=== PATIENT | female | born 1960 | race Caucasian/White ===

== ENCOUNTER 2018-12-16 14:16 | Outpatient (CLI) | payer BC ==
[~2018-12-16] VITALS: Ht 172.7 cm; Wt 80.7 kg
[~2018-12-16 14:16] MED LIST: AC500T; ALPR.25T PO; FAMO20TA5; HYOS0.3710 PO
[2018-12-16] MEDS ORDERED: ATOR40TA70 PO (15:16)
[2018-12-16] MEDS ORDERED: LEVO75TA6 PO (15:16)
== END 2018-12-16 15:21 | disposition home or self-care (01) ==
LOC: PREOP 14:16
PROVIDERS: ATTEND Urology
DX: Z01.818 Encounter for other preprocedural examination (principal)

== ENCOUNTER 2018-12-21 06:20 | Day surgery (SDC) | payer SELFPAY ==
[~2018-12-21] VITALS: Ht 170.2 cm; Wt 80.7 kg
[~2018-12-21 06:20] MED LIST changes: +ATOR40TA70 PO; +LEVO75TA6 PO
--- OUTSIDE RECORDS SUMMARY | 2018-12-21 06:24 | XMS REPORT | Continuity of Care Document ---
Author Organization Unknown Address Unknown Allergies There is no data. Medications There is no data. Problems There is no data. Procedures There is no data. Results Test Result Range TSH - 11/22/18 11:12 TSH >150.00 mIU/L 0.40-4.50 SUREPATH PAP AND HPV mRNA E6/E7 - 11/30/18 11:12 CLINICAL INFORMATION: NRG LMP: MENOPAUSAL NRG PREV. PAP: UNKNOWN NRG PREV. BX: UNK NRG SOURCE: Cervix NRG STATEMENT OF ADEQUACY: NRG INTERPRETATION/RESULT: NRG NURSING ADMIN: NRG HPV mRNA E6/E7, SUREPATH VIAL Not Detected NOT DETECTED COMMENT NRG CULTURE, URINE - 11/30/18 11:12 CULTURE, URINE, ROUTINE SEE NOTE NRG Encounters ACCT No. Visit Date/Time Discharge Status Pt. Type Provider Facility Loc./Unit Complaint [id number] 12/06/2018 11:40:00 12/06/2018 23:59:59 [facility] Outpatient [facility] [id number] 11/30/2018 09:40:00 Document Registration [id number] 11/22/2018 09:20:00 Document Registration
[2018-12-21 06:45] VITALS: BP 101/90
[2018-12-21] MEDS ORDERED: MIDAZOLAM 2 MG/2 ML (VERSED) VIAL IV ONE (07:00)
[2018-12-21] MEDS ORDERED: FAMOTIDINE 20MG/2ML IV (PEPCID) IV ONE (07:00)
--- NOTE | 2018-12-21 07:02 | Progress Note-Pre Operative ---
Pre-Operative Progress Note H&P Reviewed The H&P was reviewed, patient examined and no changes noted. Date Seen by Provider: Dec 21, 2018 Time Seen by Provider: 07:01 Date H&P Reviewed: Dec 21, 2018 Time H&P Reviewed: 07:01 Pre-Operative Diagnosis: URETHRAL OLIVE VIDALES MD Dec 21, 2018 07:02
--- NOTE | 2018-12-21 07:09 | Progress Note-Post Operative ---
Post-Operative Progess Note Surgeon (s)/News Operations Manager (s) Surgeon OLIVE MILLER MD News Operations Manager: NONE Pre-Operative Diagnosis URETHRAL LESION Post-Operative Diagnosis URETHRAL PROLAPSE Procedure & Operative Findings Date of Procedure 12/21/18 Procedure Performed/Findings EXCISION OF URETHRAL PROLAPSE Anesthesia Type GENERAL Estimated Blood Loss Estimated blood loss (mL): NEGLIGIBLE Specimens/Packing Specimens Removed URETHRAL PROLAPSE Packing: NONE OLIVE MILLER MD Dec 21, 2018 07:09
[2018-12-21] MEDS: LACTATED RINGERS 1,000 ML IV PRN ×2 (07:10→08:50)
[2018-12-21] MEDS ORDERED: CATHETER FLUSH 10 ML SYR IV PRN (07:15)
[2018-12-21] MEDS ORDERED: cefTRIAXone FOR IV USE 1,000 MG in WATER (STERILE) FOR INJECTION 10 ML IV ONE (07:15)
[2018-12-21] MEDS ORDERED: LIDOCAINE PF 2% 5 ML (XYLOCAINE) VIAL ONE (07:57)
[2018-12-21] MEDS ORDERED: proPOfol 200 MG/20 ML (DIPRIVAN) VIAL IV ONE (07:57)
[2018-12-21] MEDS ORDERED: DEXAMETHASONE 10 MG/ML (DECADRON) 1 ML VIAL ONE (07:57)
[2018-12-21] MEDS ORDERED: ONDANSETRON 4 MG/2 ML (SDV) Z0FRAN ONE (07:57)
[2018-12-21] MEDS ORDERED: SEVOFLURANE (ULTANE) 15 ML INHAL SOLN ONE (07:58)
[2018-12-21] MEDS ORDERED: fentaNYL INJECTION 100 MCG/2 ML AMP ONE (07:58)
--- NOTE | 2018-12-21 09:27 | Discharge Inst-Urology ---
Discharge Inst-Urology Discharge Medications New, Converted, or Re-newed RX: RX on Chart Patient Instructions/Follow Up Plan Discharge with ferguson and leg bag day time and large bag night time with instructions. Please make appointment to been seen in office in 2 weeks. Tomorrow may start showers, no bath Keep bowels soft and moving Patient to come to office in one week to DC Ferguson Increase oral fluids for 48 hours and then as needed. Diet and Activity as tolerated. If questions or concerns contact your physician Or seek help at emergency department. OLIVE MILLER MD Dec 21, 2018 09:27
[2018-12-21] MEDS ORDERED: ONDANSETRON 4 MG/2 ML (SDV) Z0FRAN IVP PRN (09:30)
[2018-12-21] MEDS ORDERED: morphine INJ 10 MG/ML 1ML (SYR OR VIAL) IVP ONE (09:30)
[2018-12-21 09:45] VITALS: BP 109/78
[2018-12-21 09:50] VITALS: BP 109/78
--- NOTE | 2018-12-21 10:06 | Anesthesia-General Post-Op ---
General Patient Condition Mental Status/LOC: Same as Preop Cardiovascular: Satisfactory Nausea/Vomiting: Absent Respiratory: Satisfactory Pain: Controlled Complications: Absent Post Op Complications Complications None Follow Up Care/Instructions Patient Instructions None needed. Anesthesia/Patient Condition Patient Condition Patient is doing well, C/O a slight headache which she states she had on arrival this morning, stable vital signs, no apparent adverse anesthesia problems. SUZAN KOVACS DO Dec 21, 2018 10:06
[2018-12-21 10:15] VITALS: BP 122/80
[2018-12-21] MEDS ORDERED: NITR-65 PO (10:25)
[2018-12-21] MEDS ORDERED: PHEN-640 PO (10:25)
[2018-12-21] MEDS ORDERED: NEOM28.34 TP (10:25)
[2018-12-21 10:45] VITALS: BP 124/84
--- NOTE | 2018-12-21 13:47 | OPERATIVE REPORT ---
DATE OF SERVICE: 12/21/2018 PREOPERATIVE DIAGNOSIS: Urethral lesion. POSTOPERATIVE DIAGNOSIS: Urethral prolapse. OPERATION PERFORMED: Excision of urethral prolapse. SURGEON: Holden Miller MD ANESTHESIA: General. COMPLICATIONS: None. DESCRIPTION OF PROCEDURE: Under satisfactory general anesthesia, the patient in lithotomy position, genitalia were prepped and draped in the usual sterile fashion. Observed a urethral prolapse, all circumferentially around the urethra. I performed cystoscopy to confirm the integrity of the bladder and ureters with clear efflux from both sides. I removed the cystoscope, inserted a Pozo catheter. Then, I excised the urethral prolapse around the meatus healthy tissue. I went ahead and approximated the mucosa with several interrupted 4-0 chromic catgut. Hemostasis was very adequate. I left the Pozo catheter indwelling. Estimated blood loss was negligible, none of which was replaced. The patient tolerated the procedure and anesthesia well and was sent to recovery room in stable condition. Job ID: [id number] DocumentID: [id number] Dictated Date: 12/21/2018 09:23:19 Financial Data Analyst Date: 12/21/2018 13:46:33 Dictated By: HOLDEN MILLER MD
== END 2018-12-21 11:25 | disposition home or self-care (01) ==
LOC: SDC 06:20
PROVIDERS: ATTEND Urology
DX: N36.8 Other specified disorders of urethra (principal); F41.0 Panic disorder [episodic paroxysmal anxiety]; K58.9 Irritable bowel syndrome, unspecified; K21.9 Gastro-esophageal reflux disease without esophagitis; Z79.899 Other long term (current) drug therapy
CPT/HCPCS: 87081

== ENCOUNTER 2019-04-25 05:39 | Outpatient (CLI) | payer OTHER ==
[~2019-04-25] VITALS: Ht 170.2 cm; Wt 72.6 kg
[~2019-04-25 05:39] MED LIST changes: +NEOM28.34 TP; +NITR-65 PO; +PHEN-640 PO
== END 2019-04-25 14:46 ==
LOC: PREOP 05:39
PROVIDERS: ATTEND Obstetrics & Gynecology
DX: Z01.818 Encounter for other preprocedural examination (principal); Z97.5 Presence of (intrauterine) contraceptive device

== ENCOUNTER 2019-04-28 08:37 | Day surgery (SDC) | payer OTHER ==
[2019-04-28] VITALS (11 sets, daily range): BP systolic 10–142; BP diastolic 68–93
[~2019-04-28] VITALS: Ht 170.2 cm; Wt 72.6 kg
[2019-04-28] MEDS ORDERED: LACTATED RINGERS 1,000 ML IV PRN (09:12)
[2019-04-28] MEDS ORDERED: ceFAZolin INJECTION 1,000 MG in WATER (STERILE) FOR INJECTION 10 ML IV ONE (09:15)
[2019-04-28] MEDS ORDERED: ceFAZolin INJECTION 1,000 MG ONE (09:25)
[2019-04-28 09:27] LABS: BASOPHILS % (AUTO) 1 % (0-10); EOSINOPHILS # (AUTO) 0.2 10^3/uL (0.0-0.3); EOSINOPHILS % (AUTO) 5 % (0-10); HEMATOCRIT 39 % (35-52); HEMOGLOBIN 12.7 G/DL (11.5-16.0); LYMPHOCYTES # (AUTO) 1.1 X 10^3 (1.0-4.0); LYMPHOCYTES % (AUTO) 26 % (12-44); MEAN CORPUSCULAR HEMOGLOBIN 27 PG (25-34); MEAN CORPUSCULAR HGB CONC 33 G/DL (32-36); MEAN CORPUSCULAR VOLUME 84 FL (80-99); MEAN PLATELET VOLUME 9.9 FL (7.4-10.4); MONOCYTES # (AUTO) 0.5 X 10^3 (0.0-1.0); MONOCYTES % (AUTO) 11 % (0-12); NEUTROPHILS # (AUTO) 2.4 X 10^3 (1.8-7.8); NEUTROPHILS % (AUTO) 57 % (42-75); PLATELET COUNT 276 10^3/uL (130-400); RED CELL DISTRIBUTION WIDTH 15.7 % (10.0-14.5); WHITE BLOOD COUNT 4.2 10^3/uL (4.3-11.0)
[2019-04-28] MEDS ORDERED: fentaNYL INJECTION 100 MCG/2 ML AMP ONE (09:43)
[2019-04-28] MEDS ORDERED: proPOfol 200 MG/20 ML (DIPRIVAN) VIAL IV ONE (09:43)
[2019-04-28] MEDS ORDERED: MIDAZOLAM 2 MG/2 ML (VERSED) VIAL ONE (09:43)
[2019-04-28] MEDS ORDERED: LIDOCAINE PF 2% 5 ML (XYLOCAINE) VIAL ONE (09:43)
[2019-04-28] MEDS ORDERED: morphine INJ 10 MG/ML 1ML (SYR OR VIAL) IVP ONE (10:00)
[2019-04-28] MEDS ORDERED: fentaNYL INJECTION 100 MCG/2 ML AMP IVP ONE (10:00)
--- NOTE | 2019-04-28 10:03 | Progress Note-Pre Operative ---
Pre-Operative Progress Note H&P Reviewed The H&P was reviewed, patient examined and no changes noted. Date Seen by Provider: Apr 28, 2019 Time Seen by Provider: 10:00 Date H&P Reviewed: Apr 28, 2019 Time H&P Reviewed: 09:30 Pre-Operative Diagnosis: Retained IUD BRIDGET COLMENARES DO Apr 28, 2019 10:03
--- NOTE | 2019-04-28 10:04 | Discharge Inst-Women's Service ---
Discharge Inst-Women's Serv Depart Medication/Instructions New, Converted or Re-Newed RX: RX on Chart Problems Reviewed?: Yes Consults/Follow Up Additional Follow Up: Yes Orders/Referrals Dr. Colmenares in 7-10 days. Activity Activity: Activity as Tolerated Driving Instructions: You May Drive (not today) Diet Discharge Diet: No Restrictions Symptoms to Report to : Bleeding Excessive, Pain Increased, Fever Over 101 Degrees F, Vaginal Bleeding Increase, Questions/Concerns For Any Problems or Questions: Contact Your Physician BRIDGET COLMENARES DO Apr 28, 2019 10:04
[2019-04-28] MEDS ORDERED: D5 LR IV SOLUTION 1,000 ML IV SCH (10:06)
[2019-04-28] MEDS ORDERED: ONDANSETRON 4 MG/2 ML (SDV) Z0FRAN IVP PRN (10:15)
[2019-04-28] MEDS ORDERED: BUPIVACAINE 0.25% 30 ML (SENSORCAINE) VIAL ONE (10:18)
[2019-04-28] MEDS ORDERED: DEXAMETHASONE 10 MG/ML (DECADRON) 1 ML VIAL ONE (10:26)
[2019-04-28] MEDS ORDERED: ONDANSETRON 4 MG/2 ML (SDV) Z0FRAN ONE (10:26)
[2019-04-28] MEDS ORDERED: SEVOFLURANE (ULTANE) 15 ML INHAL SOLN ONE (10:39)
--- NOTE | 2019-04-28 12:21 | Anesthesia-General Post-Op ---
General Patient Condition Mental Status/LOC: Same as Preop Cardiovascular: Satisfactory Nausea/Vomiting: Absent Respiratory: Satisfactory Pain: Controlled Complications: Absent Post Op Complications Complications None Follow Up Care/Instructions Patient Instructions None needed. Anesthesia/Patient Condition Patient Condition Patient is doing well, no complaints, stable vital signs, no apparent adverse anesthesia problems. No complications reported per nursing. ESPERANZA DE OLIVEIRA CRNA Apr 28, 2019 12:21
--- NOTE | 2019-04-28 15:30 | OPERATIVE REPORT ---
DATE OF SERVICE: PREOPERATIVE DIAGNOSIS: A 58-year-old female with retained IUD greater than 30 years. POSTOPERATIVE DIAGNOSIS: A 58-year-old female with retained IUD greater than 30 years. PROCEDURE: Removal of retained IUD. SURGEON: Bridget Colmenares DO ANESTHESIA: General endotracheal. ESTIMATED BLOOD LOSS: Minimal. URINE OUTPUT: 20 mL drained at the end of the procedure. FLUIDS: 800 mL lactated Ringer's solution. FINDINGS: Lippes loop IUD, grossly normal appearing cervix and external female genitalia. SPECIMEN SENT: None. INDICATIONS FOR PROCEDURE: This 58-year-old female is the patient who came to my office with retained IUD that was requesting removal. Unsuccessful attempts were made in the office with her primary care provider. I discussed with the patient, attempted again in the office versus doing this under anesthesia, which may require hysteroscopy in order to visualize the IUD and remove it. Risks of procedure were discussed with the patient in detail and after all of her questions were answered, consent was obtained in the preoperative area and the patient was taken to the operating room. OPERATIVE REPORT IN DETAIL: Once in the operating room, anesthesia was found to be adequate, placed in dorsal lithotomy position, prepped and draped in normal sterile fashion. A timeout was performed. A weighted speculum was inserted in the patient's vagina. Right angle retractor was used to visualize the cervix, which was grasped at 12 o'clock position using a long Allis clamp. I am able to visualize the IUD strings. I gently sound the uterine cavity, depth was found to be 6 cm. I attempted to grasp the IUD with the uterine sound and unable to do so, grasping the strings and pulling them. There is significant amount of resistance. Therefore, I go inside of the cervix after dilating the cervix using Savanna dilators. I go inside of the cervix and I am able to grasp with a long curved Lynn, the IUD itself and removed it without difficulty. There is little to minimal bleeding noted after removal. A paracervical block is performed at 3 and 9 o'clock position using plain 0.25% Marcaine with 5 mL are injected at 3 and 9. Care was taken to aspirate before injecting. This was done for postoperative pain management and helping with cramping postoperatively after which there was no active bleeding noted from the cervix and the patient tolerated the procedure well and sent to recovery area in stable condition. Lap and sponge counts were correct at the end of the procedure. Instrument counts correct as well. Job ID: [id number] DocumentID: [id number] Dictated Date: 04/28/2019 11:02:07 Contractor [employer] Date: 04/28/2019 15:30:05 Dictated By: BRIDGET COLMENARES DO
== END 2019-04-28 12:45 | disposition home or self-care (01) ==
LOC: SDC 08:37
PROVIDERS: ATTEND Obstetrics & Gynecology
DX: Z30.432 Encounter for removal of intrauterine contraceptive device (principal); T83.89XA Other specified complication of genitourinary prosthetic devices, implants and grafts, initial encounter; E07.9 Disorder of thyroid, unspecified; E78.5 Hyperlipidemia, unspecified; G89.29 Other chronic pain; M54.9 Dorsalgia, unspecified; G62.9 Polyneuropathy, unspecified; J30.9 Allergic rhinitis, unspecified; Z88.8 Allergy status to other drugs, medicaments and biological substances; Z79.82 Long term (current) use of aspirin; Z88.6 Allergy status to analgesic agent; Z87.891 Personal history of nicotine dependence; Z79.899 Other long term (current) drug therapy; Z83.3 Family history of diabetes mellitus; Z82.49 Family history of ischemic heart disease and other diseases of the circulatory system
CPT/HCPCS: 36415; 85025; 86850; 86900; 86901; 87081; 94664

== ENCOUNTER 2020-12-14 14:38 | Inpatient (IN) | payer OTHER ==
[~2020-12-14] VITALS: Ht 170.2 cm; Wt 95.5 kg
--- NOTE | 2020-12-14 15:01 | ED Chest Pain ---
General Stated Complaint: CP Source: patient Exam Limitations: no limitations History of Present Illness Date Seen by Provider: Dec 14, 2020 Time Seen by Provider: 14:59 Initial Comments To ER with reports of chest pain. This began this morning at 5 AM when she awakened. She then went back to sleep and reawakened at about 8 AM and still had the chest pain. It persists now, about 4 out of 10. She had some mild nausea. She takes Pepcid a few times a week for heartburn. She also has some pain between her shoulder blades which she believes is arthritis. She does have a history of hyperlipidemia. She smokes marijuana daily but does not smoke cigarettes. Her father at the age of mid 50s from heart attack. Timing/Duration: 4-6 hours Severity/Quality: moderate Location: central Radiation: no radiation Activities at Onset: none ASA po DORR OPERATOR: No NTG SL DORR OPERATOR: No Associated Symptoms: denies symptoms Allergies and Home Medications Allergies Coded Allergies: NSAIDS (Non-Steroidal Anti-Inflamma (Unverified Allergy, Unknown, 04/25/19) aspirin (Verified Allergy, Unknown, 04/25/19) diphenhydramine (Verified Allergy, Unknown, 04/25/19) erythromycin base (Verified Allergy, Unknown, 04/25/19) ibuprofen (Verified Allergy, Unknown, Hives, 04/28/19) loratadine (Verified Allergy, Unknown, 04/25/19) prednisone (Verified Allergy, Unknown, 04/25/19) rofecoxib (Verified Allergy, Unknown, 04/25/19) codeine (Verified Adverse Reaction, Mild, Nausea, 04/25/19) Home Medications Levothyroxine Sodium 75 Mcg Tablet, 75 MCG PO DAILY, (Reported) Patient Home Medication List Home Medication List Reviewed: Yes Review of Systems Review of Systems Constitutional: see HPI EENTM: No Symptoms Reported Respiratory: No Symptoms Reported Cardiovascular: See HPI, Chest Pain Gastrointestinal: See HPI Genitourinary: No Symptoms Reported Musculoskeletal: no symptoms reported Skin: no symptoms reported Psychiatric/Neurological: No Symptoms Reported Endocrine: No Symptoms Reported Hematologic/Lymphatic: No Symptoms Reported Past Aqcxfdv-Mblkop-Xnxskf Hx Patient Social History Former Smoker, Quit: Dec 16, 2004 2nd Hand Smoke Exposure: Yes Recent Hopitalizations: No Immunizations Up To Date Tetanus Booster (TDap): Unknown PED Vaccines UTD: No Seasonal Allergies Seasonal Allergies: Yes Past Medical History Surgeries: Yes (wisdom teeth, spider bite I&D, URETHRA PROLAPSE) Respiratory: No Cardiac: No Neurological: No Sexually Transmitted Disease: No HIV/AIDS: No Genitourinary: Yes (urethral lesion) Gastrointestinal: Yes Irritable Bowel Musculoskeletal: Yes Arthritis, Chronic Back Pain Endocrine: Yes Hypothyroidsim HEENT: No Cancer: No Psychosocial: Yes Anxiety Integumentary: No Blood Disorders: No Adverse Reaction/Blood Tranf: No (N/A) Physical Exam Vital Signs Capillary Refill : Height, Weight, BMI Height: 5'7.00" Weight: 160lbs. 0.0oz. 72.108173it; 25.1 BMI Method:Stated General Appearance: No Apparent Distress, WD/WN Neck: Full Range of Motion, Normal Inspection Respiratory: No Accessory Muscle Use, No Respiratory Distress Cardiovascular: Regular Rate, Rhythm, Normal Peripheral Pulses Gastrointestinal: Normal Bowel Sounds, Non Tender, Soft Extremity: Normal Capillary Refill, Normal Inspection Neurologic/Psychiatric: Alert, Oriented x3 Skin: Normal Color, Warm/Dry Progress/Results/Core Measures Results/Orders Lab Results Laboratory Tests Test 12/14/20 14:55 Range/Units White Blood Count 4.8 4.3-11.0 10^3/uL Red Blood Count 4.69 3.80-5.11 10^6/uL Hemoglobin 13.9 11.5-16.0 g/dL Hematocrit 42 35-52 % Mean Corpuscular Volume 90 80-99 fL Mean Corpuscular Hemoglobin 30 25-34 pg Mean Corpuscular Hemoglobin Concent 33 32-36 g/dL Red Cell Distribution Width 13.2 10.0-14.5 % Platelet Count 263 130-400 10^3/uL Mean Platelet Volume 9.8 9.0-12.2 fL Immature Granulocyte % (Auto) 0 % Neutrophils (%) (Auto) 64 42-75 % Lymphocytes (%) (Auto) 27 12-44 % Monocytes (%) (Auto) 7 0-12 % Eosinophils (%) (Auto) 2 0-10 % Basophils (%) (Auto) 1 0-10 % Neutrophils # (Auto) 3.0 1.8-7.8 X 10^3 Lymphocytes # (Auto) 1.3 1.0-4.0 X 10^3 Monocytes # (Auto) 0.3 0.0-1.0 X 10^3 Eosinophils # (Auto) 0.1 0.0-0.3 10^3/uL Basophils # (Auto) 0.0 0.0-0.1 10^3/uL Immature Granulocyte # (Auto) 0.0 0.0-0.1 10^3/uL Prothrombin Time 12.7 12.2-14.7 SEC INR Comment 0.9 0.8-1.4 Activated Partial Thromboplast Time 30 24-35 SEC D-Dimer 0.52 H 0.00-0.49 UG/ML Sodium Level 139 135-145 MMOL/L Potassium Level 3.9 3.6-5.0 MMOL/L Chloride Level 110 H 98-107 MMOL/L Carbon Dioxide Level 18 L 21-32 MMOL/L Anion Gap 11 5-14 MMOL/L Blood Urea Nitrogen 11 7-18 MG/DL Creatinine 0.82 0.60-1.30 MG/DL Estimat Glomerular Filtration Rate > 60 BUN/Creatinine Ratio 13 Glucose Level 109 H 70-105 MG/DL Calcium Level 8.9 8.5-10.1 MG/DL Corrected Calcium 9.0 8.5-10.1 MG/DL Magnesium Level 1.8 1.6-2.4 MG/DL Total Bilirubin 0.6 0.1-1.0 MG/DL Aspartate Amino Transf (AST/SGOT) 22 5-34 U/L Alanine Aminotransferase (ALT/SGPT) 18 0-55 U/L Alkaline Phosphatase 78 40-136 U/L Myoglobin 393.1 H 10.0-92.0 NG/ML Troponin I 0.523 *H <0.028 NG/ML B-Type Natriuretic Peptide 53.8 <100.0 PG/ML Total Protein 6.6 6.4-8.2 GM/DL Albumin 3.9 3.2-4.5 GM/DL Lipase 14 8-78 U/L My Orders Orders - SARAH LÓPEZ APRN Cbc With Automated Diff (12/14/20 14:48) Magnesium (12/14/20 14:48) Chest 1 View, Ap/Pa Only (12/14/20 14:48) Ekg Tracing (12/14/20 14:48) Comprehensive Metabolic Panel (12/14/20 14:48) Myoglobin Serum (12/14/20 14:48) Protime With Inr (12/14/20 14:48) Partial Thromboplastin Time (12/14/20 14:48) O2 (12/14/20 14:48) Monitor-Rhythm Ecg Trace Only (12/14/20 14:48) Lipid Panel (12/15/20 06:00) Ed Iv/Invasive Line Start (12/14/20 14:48) Lipase (12/14/20 14:48) BNP (12/14/20 14:48) Fibrin Degradation Products (12/14/20 14:48) Troponin I (12/14/20 14:48) Aspirin Chewable Tablet (Baby Aspirin Ch (12/14/20 15:15) Pantoprazole Injection (Protonix Injecti (12/14/20 15:15) Antacid Suspension (Mylanta Suspension (12/14/20 15:15) Lidocaine 2% Viscous 15 Ml (Xylocaine Vi (12/14/20 15:15) Nitroglycerin 0.4 Mg Btl 25's (Nitrostat (12/14/20 15:45) Fentanyl Inj (Sublimaze Injection) (12/14/20 15:45) Enoxaparin Injection (Lovenox Injection) (12/14/20 16:00) Ticagrelor Tablet (Brilinta Tablet) (12/14/20 16:00) Ondansetron Injection (Zofran Injectio (12/14/20 16:00) Medications Given in ED Current Medications Medications Dose Ordered Sig/Ofe Route Start Time Stop Time Status Last Admin Dose Admin Al Hydrox/Mg Hydrox/Simethicone 30 ml ONCE ONCE PO 12/14/20 15:15 12/14/20 15:16 DC 12/14/20 15:25 30 ML Aspirin 324 mg ONCE ONCE PO 12/14/20 15:15 12/14/20 15:16 DC 12/14/20 15:25 324 MG Fentanyl Citrate 50 mcg ONCE ONCE IVP 12/14/20 15:45 12/14/20 15:46 DC 12/14/20 15:47 50 MCG Lidocaine HCl 10 ml ONCE ONCE PO 12/14/20 15:15 12/14/20 15:16 DC 12/14/20 15:25 10 ML Nitroglycerin 1 TAB Q 5 MIN X 3 NEEDED PRN SL 12/14/20 15:45 12/14/20 15:47 0.4 MG Pantoprazole 40 mg ONCE ONCE IV 12/14/20 15:15 12/14/20 15:16 DC 12/14/20 15:24 40 MG Departure Communication (Admissions) Spoke with Dr. Anderson, will admit, 2D echocardiogram in the morning, Brilinta 180 mg now in the 90 mg twice daily as well as Lovenox now. Possible cardiac catheterization in the morning. Spoke with Dr. Giron [facility] he agrees to admit. Impression Primary Impression: Chest pain Disposition: HOME, SELF-CARE Condition: Stable Admissions Decision to Admit Reason: Admit from ER (General) Decision to Admit/Date: Dec 14, 2020 Time/Decision to Admit Time: 15:43 Departure-Patient Inst. Referrals: [facility] (PCP) Primary Care Physician MIMA RODRIGUEZ (Family) Primary Care Physician Patient Instructions: Chest Pain (DC) SARAH LÓPEZ 3D ANIMATOR Dec 14, 2020 15:01
[2020-12-14 15:03] LABS: BASOPHILS % (AUTO) 1 % (0-10); EOSINOPHILS # (AUTO) 0.1 10^3/uL (0.0-0.3); EOSINOPHILS % (AUTO) 2 % (0-10); HEMATOCRIT 42 % (35-52); HEMOGLOBIN 13.9 g/dL (11.5-16.0); LYMPHOCYTES # (AUTO) 1.3 X 10^3 (1.0-4.0); LYMPHOCYTES % (AUTO) 27 % (12-44); MEAN CORPUSCULAR HEMOGLOBIN 30 pg (25-34); MEAN CORPUSCULAR HGB CONC 33 g/dL (32-36); MEAN CORPUSCULAR VOLUME 90 fL (80-99); MEAN PLATELET VOLUME 9.8 fL (9.0-12.2); MONOCYTES # (AUTO) 0.3 X 10^3 (0.0-1.0); MONOCYTES % (AUTO) 7 % (0-12); NEUTROPHILS % (AUTO) 64 % (42-75); PLATELET COUNT 263 10^3/uL (130-400); WHITE BLOOD COUNT 4.8 10^3/uL (4.3-11.0)
[2020-12-14] MEDS ORDERED: ASPIRIN 81 MG CHEW (CHILDREN'S ASA) PO ONE (15:15)
[2020-12-14] MEDS ORDERED: PANTOPRAZOLE 40 MG (PROTONIX) VIAL IV ONE (15:15)
[2020-12-14] MEDS ORDERED: LIDOCAINE 2% VISCOUS 15 ML UDC PO ONE (15:15)
[2020-12-14] MEDS ORDERED: ANTACID SUSP 30 ML UDC (MYLANTA) PO ONE (15:15)
[2020-12-14 15:16] LABS: ALBUMIN 3.9 GM/DL (3.2-4.5); CHLORIDE 110 MMOL/L (98-107); INR 0.9 (0.8-1.4); POTASSIUM 3.9 MMOL/L (3.6-5.0); PROTHROMBIN TIME PATIENT 12.7 SEC (12.2-14.7); SODIUM 139 MMOL/L (135-145)
[2020-12-14 15:17] LABS: CALCIUM 8.9 MG/DL (8.5-10.1)
[2020-12-14 15:18] LABS: GLUCOSE 109 MG/DL (70-105)
[2020-12-14 15:19] LABS: TOTAL PROTEIN 6.6 GM/DL (6.4-8.2)
[2020-12-14 15:20] LABS: BILIRUBIN,TOTAL 0.6 MG/DL (0.1-1.0); CARBON DIOXIDE 18 MMOL/L (21-32)
[2020-12-14 15:22] LABS: ALKALINE PHOSPHATASE 78 U/L (40-136); CREATININE SERUM 0.82 MG/DL (0.60-1.30); GFR ESTIMATED > 60
[2020-12-14 15:23] LABS: BUN/CREATININE RATIO 13
[2020-12-14 15:25] LABS: ALANINE AMINOTRANSFERASE 18 U/L (0-55); MAGNESIUM 1.8 MG/DL (1.6-2.4)
[2020-12-14 15:26] LABS: LIPASE 14 U/L (8-78)
[2020-12-14] MEDS ORDERED: NITROGLYCERIN 0.4 MG SL TABS BTL 25'S SL PRN (15:45)
[2020-12-14] MEDS ORDERED: fentaNYL INJ 100 MCG/2 ML AMP IVP ONE (15:45)
[2020-12-14] MEDS ORDERED: ENOXAPARIN 100 MG/1 ML (LOVENOX) SYR SC ONE (16:00)
[2020-12-14] MEDS ORDERED: ONDANSETRON 4 MG/2 ML (SDV) Z0FRAN IVP ONE (16:00)
[2020-12-14] MEDS ORDERED: TICAGRELOR 90 MG TABLET (BRILINTA) PO ONE (16:00)
[2020-12-14] MEDS ORDERED: NS IV 1000 ML 1,000 ML ONE (16:02)
--- NOTE | 2020-12-14 16:14 | Diagnostic Imaging Report ---
EXAMINATION: Chest 1 view. HISTORY: Chest pain. COMPARISON: None available. FINDINGS: Heart size and pulmonary vasculature are normal. Mild interstitial opacities within the lung bases. No pleural effusion or pneumothorax. The osseous structures are intact. IMPRESSION: 1. Mild interstitial opacities in the lung bases which could be atelectasis, edema, or atypical infection in the appropriate clinical setting. Dictated by: Dictated on workstation # [id number]
[2020-12-14] MEDS ORDERED: NS IV 1000 ML 1,000 ML IV SCH (16:30)
[2020-12-14] MEDS ORDERED: LORazepam 0.5 MG (ATIVAN) TABLET PO PRN (18:15)
[2020-12-14] MEDS ORDERED: LORazepam INJ 2 MG/ML (ATIVAN) VIAL IV PRN (18:15)
[2020-12-14] MEDS: fentaNYL INJ 100 MCG/2 ML AMP IV PRN (18:41)
[2020-12-14] MEDS: LACTATED RINGERS 1,000 ML IV SCH (18:41)
[2020-12-14 19:24] VITALS: BP 138/92
[2020-12-14 23:00] VITALS: BP 140/86
[2020-12-15] VITALS (15 sets, daily range): BP systolic 114–172; BP diastolic 68–101
[2020-12-15] MEDS: LACTATED RINGERS 1,000 ML IV SCH ×3 (02:55→18:28)
[2020-12-15] MEDS: fentaNYL INJ 100 MCG/2 ML AMP IV PRN ×3 (04:15→16:30)
[2020-12-15] MEDS: ONDANSETRON 4 MG/2 ML (SDV) Z0FRAN IV PRN ×2 (04:19→19:49)
[2020-12-15] MEDS ORDERED: TICAGRELOR 90 MG TABLET (BRILINTA) PO SCH (05:00)
[2020-12-15] MEDS: PANTOPRAZOLE 40 MG (PROTONIX) VIAL IV SCH (08:53)
[2020-12-15] MEDS ORDERED: ASPIRIN 81 MG CHEW (CHILDREN'S ASA) PO SCH (09:00)
--- NOTE | 2020-12-15 11:22 | History & Physical-Hospitalist ---
History of Present Illness HPI/Chief Complaint Patient reports waking up the morning of her admission with chest discomfort around 630 it apparently lasted for several hours was getting worse and associated with some nausea she denied diaphoresis. She had some subscapular back pain that is not unusual for her however when she wakes up. She denied any previous problems with chest discomfort like this denied dyspnea on exertion or change in energy level. While her ECG in the emergency room was normal troponin level was 0.5 so she was admitted with presumed non-ST segment elevation ME. She was started on Brilinta and aspirin and received 1 dose of nitroglycerin which reportedly resulted in hypotension without syncope but was symptomatic per the patient. Nitro is being held for this reason. Overnight she had more chest discomfort alleviated by fentanyl with repeat ECG this morning again revealing no ischemic change and underlying sinus rhythm. Dr. Anderson was consulted and notified about her chest discomfort per nursing staff. Currently this morning she appears to be in no acute distress rating some precordial discomfort at 2-3 much better than it had been around 4:30 ARisk factors are most notable for a family history for early coronary disease. Date Seen 12/15/20 Time Seen by a Provider: 06:30 Attending Physician Gurpreet Giron MD PCP Center[facility] Referring Physician Date of Admission Dec 14, 2020 at 16:31 Home Medications & Allergies Home Medications Reviewed patient Home Medication Reconciliation performed by pharmacy medication reconciliations exhaust emissions automotive technician and/or nursing. Patients Allergies have been reviewed. Allergies Allergies Coded Allergies ibuprofen (Verified Allergy, Mild, Nausea, 12/14/20) diphenhydramine (Verified Allergy, Unknown, 04/25/19) erythromycin base (Verified Allergy, Unknown, 04/25/19) loratadine (Verified Allergy, Unknown, 04/25/19) prednisone (Verified Allergy, Unknown, 04/25/19) rofecoxib (Verified Allergy, Unknown, 04/25/19) codeine (Verified Adverse Reaction, Mild, Nausea, 04/25/19) Patient Social History Tobacco Use?: No Smoking Status: Never a Smoker Substance use?: Yes Substance type: Marijuana Substance frequency: Daily Alcohol Use?: No Pt stated abuse/neglect: No Immunizations Up To Date Influenza Vaccine Up-to-Date: No; Not Current Current Status Do you have an Advance Directi: No Communicates: Verbally Primary Language: Kyrgyz Preferred Spoken Language: Kyrgyz Is interpretation needed?: No Review of Systems Constitutional: see HPI Physical Exam Physical Exam Vital Signs Vital Signs - First Documented 12/14/20 12/14/20 14:40 16:45 Temp 35.9 Pulse 56 Resp 20 B/P (MAP) 148/102 (117) Pulse Ox 97 O2 Delivery Room Air Capillary Refill : Less Than 3 Seconds Height, Weight, BMI Height: 5'7.00" Weight: 160lbs. 0.0oz. 72.585969gr; 32.96 BMI Method:Stated General Appearance: No Apparent Distress, WD/WN HEENT: PERRL/EOMI, TMs Normal, Normal ENT Inspection, Pharynx Normal, Moist Mucous Membranes Neck: Full Range of Motion, Normal Inspection, Non Tender Respiratory: Chest Non Tender, Lungs Clear, Normal Breath Sounds, No Accessory Muscle Use, No Respiratory Distress Cardiovascular: Regular Rate, Rhythm, No Edema, No Gallop, No JVD, No Murmur, Normal Peripheral Pulses Gastrointestinal: Normal Bowel Sounds, No Organomegaly, No Pulsatile Mass, Non Tender, Soft Extremity: Normal Inspection, Normal Range of Motion, Non Tender, No Calf Tenderness, No Pedal Edema Results Results/Procedures Labs Laboratory Tests 12/14/20 14:55 Patient resulted labs reviewed. Assessment/Plan Admission Diagnosis 1. Acute non-ST segment elevation ME likely cardiac cath per Dr. Anderson later today continue aspirin and Brilinta defer further cardiac management to . 2. History of hyperlipidemia aggravated by hypothyroidism. Patient reports itching reaction that occurred 30 minutes after each dose of atorvastatin in the past. Advised to discuss this with Dr. Anderson as a different statin for which my choice would be rosuvastatin moderate to high-dose considering the circumstances. 3. 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 Admission Status: Inpatient Order (span 2 midnights) Reason for Inpatient Admission: See admission diagnosis Clinical Quality Measures AMI/AHF: ASA po Prior to arrival: GURPREET Traore MD Dec 15, 2020 11:22
[2020-12-15] MEDS ORDERED: fentaNYL INJ 100 MCG/2 ML AMP ONE (12:34)
[2020-12-15] MEDS ORDERED: MIDAZOLAM 5 MG/5 ML (VERSED) VIAL ONE (12:34)
[2020-12-15] MEDS ORDERED: LIDOCAINE 1% INJ 20 ML 20 ML VIAL ONE (12:34)
[2020-12-15] MEDS ORDERED: HEParin (CATH LAB) 2,000 ML IV ONE (12:35)
[2020-12-15] MEDS ORDERED: HEParin 1000 UNIT/ML (10ML VIAL) FOR BOLUS ONE (13:40)
--- NOTE | 2020-12-15 14:21 | Consultation-Cardiology ---
HPI-Cardiology Cardiology Consultation: Date of Consultation 12/15/20 Date of Admission Attending Physician Gurpreet Giron MD Admitting Physician [facility] Consulting Physician Juan Jose ANDERSON MD HPI: Time Seen by a Provider: 12:00 Chief Complaint: Chest pain This is a 60-year-old lady with history of hypertension and hyperlipidemia. She has previous history of smoking but quit few years ago. She does smoke marijuana. She denies diabetes. Family history is positive for coronary artery disease. She presents with a prolonged episode of chest pain which resolved w ith medications given in the ER. Substernal. Moderate to severe intensity. No significant radiation. No associated cardiac symptoms. Review of Systems-Cardiology Review of Systems Constitutional: As described under HPI; No As described under HPI, No no symptoms reported, No chills, No fever, No lightheadedness Eyes: No As described under HPI, No no symptoms reported, No blindness, No blurred vision, No contact lenses, No drainage, No decreased acuity, No foreign body sensation, No pain, No vision change Ears/Nose/Throat: No As described under HPI, No no symptoms reported, No chronic hearing loss, No ear discharge, No ear pain, No nasal drainage, No ulcerations Respiratory: No no symptoms reported; As described under HPI; No As described under HPI, No cough, No orthopnea, No shortness of breath, No SOB with excertion Cardiovascular: No no symptoms reported; As described under HPI; No As described under HPI; chest pain; No edema, No irregular heart rate, No lightheadedness, No palpitations Gastrointestinal: No no symptoms reported, No As described under HPI, No abdomen distended, No abdominal pain, No blood streaked bowels, No constipation, No diarrhea, No nausea, No vomiting, No stool coloration changes Genitourinary: No As described under HPI, No burning, No dysuria, No discharge, No frequency, No flank pain, No hematuria, No urgency : Yes : No Skin: No rash, No skin related problems, No ulcerations Psychiatric/Neurological: No anxiety, No depression, No seizure, No focal weakness, No syncope Hematologic: No bleeding abnormalities RQF-[id number]-[id number] Hx Patient Social History Smoking Status: Never a Smoker 2nd Hand Smoke Exposure: Yes Have you traveled recently?: No Alcohol Use?: No Substance type: Marijuana Pt feels they are or have been: No Immunizations Up To Date Tetanus Booster (TDap): Unknown Past Medical History PMH As described under Assessment. Allergies and Home Medications Allergies Coded Allergies: ibuprofen (Verified Allergy, Mild, Nausea, 12/14/20) diphenhydramine (Verified Allergy, Unknown, 04/25/19) erythromycin base (Verified Allergy, Unknown, 04/25/19) loratadine (Verified Allergy, Unknown, 04/25/19) prednisone (Verified Allergy, Unknown, 04/25/19) rofecoxib (Verified Allergy, Unknown, 04/25/19) codeine (Verified Adverse Reaction, Mild, Nausea, 04/25/19) Home Medications Levothyroxine Sodium 75 Mcg Tablet, 75 MCG PO DAILY, (Reported) Last Action: Reviewed Patient Home Medication List Home Medication List Reviewed: Yes Physical Exam-Cardiology Physical Exam Vital Signs/I&O 12/15/20 12/15/20 12/15/20 12/15/20 02:56 04:00 07:00 07:23 Temp 36.2 36.0 36.0 Pulse 63 67 66 Resp 18 17 B/P (MAP) 158/97 (117) 139/88 (105) Pulse Ox 96 95 O2 Delivery Room Air Room Air 12/15/20 12/15/20 12/15/20 08:00 11:47 12:36 Temp 36.4 Pulse 61 64 Resp 18 B/P (MAP) 143/93 (110) Pulse Ox 94 O2 Delivery Room Air Room Air 12/15/20 00:00 Intake Total 1120 ml Balance 1120 ml Capillary Refill : Less Than 3 Seconds Constitutional: appears stated age, AAO x 3; No apparent distress; well- developed, well-nourished HEENT: PERRL; No discharge; hearing is well preserved, oral hygience is good; No ulceration, No xanthelasmas are seen Neck: No carotid bruit; carotid pulses are 2 + bilaterally Respiratory: chest is bilaterally symmetric, lungs clear to auscultation Cardiovascular: regular rate-rhythm, S1 and S2 Gastrointestinal: soft, audible bowel sounds; No spleenomegaly Rectal: deferred Extremities: No clubbing, No cyanosis; no lower extremity edema bilateral; No significant edema Neurologic/Psychiatric: no motor/sensory deficits, alert, normal mood/affect, oriented x 3, power is 5/5 both on sides Skin: normal color; No rash, No ulcerations Data Review Labs Laboratory Tests 12/14/20 14:55: White Blood Count 4.8, Red Blood Count 4.69, Hemoglobin 13.9, Hematocrit 42, Mean Corpuscular Volume 90, Mean Corpuscular Hemoglobin 30, Mean Corpuscular Hemoglobin Concent 33, Red Cell Distribution Width 13.2, Platelet Count 263, Mean Platelet Volume 9.8, Immature Granulocyte % (Auto) 0, Neutrophils (%) (Auto) 64, Lymphocytes (%) (Auto) 27, Monocytes (%) (Auto) 7, Eosinophils (%) (Auto) 2, Basophils (%) (Auto) 1, Neutrophils # (Auto) 3.0, Lymphocytes # (Auto) 1.3, Monocytes # (Auto) 0.3, Eosinophils # (Auto) 0.1, Basophils # (Auto) 0.0, Immature Granulocyte # (Auto) 0.0, Prothrombin Time 12.7, INR Comment 0.9, Activated Partial Thromboplast Time 30, D-Dimer 0.52H, Sodium Level 139, Potassium Level 3.9, Chloride Level 110H, Carbon Dioxide Level 18L, Anion Gap 11, Blood Urea Nitrogen 11, Creatinine 0.82, Estimat Glomerular Filtration Rate > 60, BUN/Creatinine Ratio 13, Glucose Level 109H, Calcium Level 8.9, Corrected Calcium 9.0, Magnesium Level 1.8, Total Bilirubin 0.6, Aspartate Amino Transf (AST/SGOT) 22, Alanine Aminotransferase (ALT/SGPT) 18, Alkaline Phosphatase 78, Myoglobin 393.1H, Troponin I 0.523*H, B-Type Natriuretic Peptide 53.8, Total Protein 6.6, Albumin 3.9, Lipase 14 12/15/20 01:42: Troponin I 4.510*H, Triglycerides Level 140, Cholesterol Level 222H, LDL Cholesterol Direct 131H, VLDL Cholesterol 28, HDL Cholesterol 69H ECG Impression ECG Initial ECG Rhythm: Normal Sinus Initial ECG Impression: Normal A/P-Cardiology Assessment/Admission Diagnosis Non-STEMI, Hypertension, Hyperlipidemia, Marijuana use Plan Non-STEMI, given aspirin and Brilinta in the ER. Lovenox given. I discussed at length with the patient and recommended coronary angiography and possible intervention. 1 to 2% risk of complication including was discussed and accepted by the patient.We will arrange for coronary angiography today. Hypertension: Will require beta-yaneth and ALICIA inhibitor. Hyperlipidemia: Patient had previously sensitivity reaction to atorvastatin. I will start Crestor. Marijuana abuse: I recommended quitting marijuana. Thank you for your consultation. Please call me if you have any questions. Stella Anderson MD, FACP, FACC, FSCAI, FHRS, CCDS Interventional Cardiology Cardiac Electrophysiology Vascular Medicine and Endovascular Interventions Clinical Quality Measures AMI/AHF: ASA po Prior to arrival: Juan Jose Weiss MD Dec 15, 2020 14:21
--- NOTE | 2020-12-15 14:25 | Cardiac Procedure Note-CS/ASA ---
Pre-Procedure Note Pre-Op Procedure Note H&P Reviewed The H&P was reviewed, patient examined and no changes noted. Date H&P Reviewed: Dec 15, 2020 Time H&P Reviewed: 13:00 Conscious Sedation Pre-Proced Time 13:00 ASA Score 3 For ASA 3 and 4: Consider anesthesia and medical clearance. Also, for patients with a history of failed moderate sedation consider anesthesia. Airway Lungs Heart ASA score ASA 1: a normal healthy patient ASA 2: a patient with a mild systemic disease (mid diabetes, controlled hypertension, obesity ASA 3: a patient with a severe systemic disease that limits activity (angina, COPD, prior Myocardial infarction) ASA 4: a patient with an incapacitating disease that is a constant threat to life (CHF, renal failure) ASA 5: a moribund patient not expected to survive 24 hrs. (ruptured aneurysm) ASA 6: a declared brain- patient whose organs are being harvested. For emergent operations, add the letter E after the classification Mallampati Classification Grade 1 Sedation Plan Analgesia, Amnesia, Plan communicated to team members, Discussed options with patient/fam, Discussed risks with patient/fam The patient is an appropriate candidate to undergo the planned procedure, sedation, and anesthesia. The patient immediately re-assessed prior to indication. Juan Jose STEWART MD Dec 15, 2020 14:25
[2020-12-15] MEDS ORDERED: PATIENT MAY USE OWN MEDS, ALL PO SCH (14:30)
--- NOTE | 2020-12-15 14:31 | Coronary Angiography & PCI ---
Coronary Angiography & PCI DATE OF PROCEDURE: 12/15/20 INDICATION: Non-STEMI PREOPERATIVE DIAGNOSIS: Non-STEMI POSTOPERATIVE DIAGNOSIS: Severe left circumflex artery stenosis treated with a drug-eluting stent. HISTORY: This is a 60-year-old lady with history of hypertension and hyperlipidemia who presents with non-STEMI. Informed consent with 1% risk of complications including discussed and accepted by the patient.Therefore, the patient was scheduled for coronary angiography. PROCEDURES PERFORMED: 1.Coronary angiography. 2.Left heart catheterization. 3.PCI to the Left circumflex artery with drug-eluting stent. COMPLICATIONS: None. SPECIMENS: None. ESTIMATED BLOOD LOSS: 10 mL ANESTHESIA: Conscious sedation ANTICOAGULATION: IV heparin CONTRAST: 149 mL. FLUOROSCOPY: 6.6 minutes. FLOUROSCOPY DOSE: 1270 mgy. PROCEDURE DETAILS: The patient is a 60 female and was brought to the pharmacy laboratory technician after informed consent was taken. All the risks and complications were explained in detail; this included the risk of bleeding, vascular damage, stroke, NM and even . The patient was draped and prepped in the usual sterile fashion. Access was gained in the right Femoral artery with a 5 [place] sheath. Coronary angiography and left heart catheterization was performed with the JR4 and JL4 catheter. FINDINGS: 1.Left main: Patent. 2.LAD: Mild mid disease. Stenosis severity 20%. 3.Left circumflex artery: Severe distal left circumflex artery/OM 2 stenosis with thrombosis. Subtotal lesion with YON I flow. 4.RCA: Chronic total occlusion of the proximal RCA with [id number] collaterals. 5.Left heart catheterization: LV pressure 77/14 mmHg. LVEDP 15 mmHg. Aortic pressure 88/65 mmHg. Normal LV function with no wall motion abnormalities. No gradient across the aortic valve. RECOMMENDATIONS: PCI to distal left circumflex artery/OM 2 is recommended. INTERVENTION DETAILS: We upgraded to a 6 [place] sheath. EBU 3.5 guide catheter. Whisper extra- support guidewire. IV heparin for anticoagulation. ACT over 200. The lesion was crossed with a whisper extra-support wire. We went in with a regular balloon 2.0 x 12 mm and performed predilatation. Post angiogram showed revascularization with YON-3 flow.Xience Fatemeh 2.25 x 18 mm stent was deployed at 9 best for 23 seconds. The stent balloon was pulled back a couple of millimeters and the mid and proximal section of the stent was postdilated with the same stent balloon at 16 best for 10 seconds. Excellent results with YON-3 flow and no complications. The patient tolerated the procedure well did not have any complications. Minx closure to the RFA CONCLUSIONS: 1. Acute subtotal occlusion of distal left circumflex artery/OM 2, treated with a drug-eluting stent. 2. Chronic total occlusion of the RCA being supplied from [id number] collaterals. Medical therapy for now. 3. Dual antiplatelet therapy for at least 1 year. Aggressive secondary prevention measures with beta-yaneth, lisinopril and Crestor. 4. Echocardiogram. 5. Marijuana use was strongly discouraged. 6. Patient to follow-up with either Dr. Mendenhall or Dr. Aly as an outpatient. Stella Anderson MD, FACP, FACC, [facility] Interventional Cardiology Juan Jose ANDERSON MD Dec 15, 2020 14:31
[2020-12-15] MEDS: NS IV 1000 ML 1,000 ML IV SCH (15:21)
[2020-12-15] MEDS: TICAGRELOR 90 MG TABLET (BRILINTA) PO SCH (21:00)
[2020-12-15] MEDS ORDERED: ROSUVASTATIN 20 MG (CRESTOR) TABLET PO SCH (21:00)
[2020-12-16] VITALS: BP 125/79
[2020-12-16] MEDS: NS IV 1000 ML 1,000 ML IV SCH ×2 (01:08→10:38)
[2020-12-16] MEDS ORDERED: ACETAMINOPHEN 500 MG TAB (TYLENOL) ONE (01:14)
[2020-12-16] MEDS: ONDANSETRON 4 MG/2 ML (SDV) Z0FRAN IV PRN (01:33)
[2020-12-16] MEDS ORDERED: ACETAMINOPHEN 500 MG TAB (TYLENOL) PO PRN (01:45)
[2020-12-16] MEDS: LACTATED RINGERS 1,000 ML IV SCH ×2 (02:46→10:26)
[2020-12-16 02:56] LABS: HEMOGLOBIN 12.4 g/dL (11.5-16.0); MEAN PLATELET VOLUME 10.6 fL (9.0-12.2); WHITE BLOOD COUNT 7.7 10^3/uL (4.3-11.0)
[2020-12-16 03:06] LABS: CHLORIDE 106 MMOL/L (98-107); POTASSIUM 3.6 MMOL/L (3.6-5.0); SODIUM 140 MMOL/L (135-145)
[2020-12-16 03:08] LABS: GLUCOSE 111 MG/DL (70-105)
[2020-12-16 03:10] LABS: CARBON DIOXIDE 22 MMOL/L (21-32)
[2020-12-16 03:12] LABS: CREATININE SERUM 0.92 MG/DL (0.60-1.30); GFR ESTIMATED > 60
[2020-12-16 03:13] LABS: BUN/CREATININE RATIO 8
[2020-12-16 04:00] VITALS: BP 113/70
[2020-12-16 07:25] VITALS: BP 114/70
[2020-12-16] MEDS ORDERED: lisINopril 40 MG (PRINIVIL) TABLET PO SCH (09:00)
[2020-12-16] MEDS ORDERED: ASPIRIN E.C. 81 MG (ECOTRIN) TAB PO SCH (09:00)
[2020-12-16] MEDS ORDERED: lisINopril 5 MG (PRINIVIL) TABLET PO SCH (09:00)
[2020-12-16] MEDS ORDERED: ROSU20TA32 PO (09:59)
[2020-12-16] MEDS ORDERED: MTP25TSR PO (09:59)
[2020-12-16] MEDS ORDERED: ASPI-1238 PO (09:59)
[2020-12-16] MEDS ORDERED: CLOP75TA69 PO (09:59)
--- NOTE | 2020-12-16 10:09 | Discharge Summary ---
Diagnosis/Chief Complaint Date of Admission Dec 14, 2020 at 16:31 Date of Discharge Discharge Date: Dec 16, 2020 Admission Diagnosis 1. Acute non-ST segment elevation OK likely cardiac cath per Dr. Anderson later today continue aspirin and Brilinta defer further cardiac management to Dr Isaac. 2. History of hyperlipidemia aggravated by hypothyroidism. Patient reports itching reaction that occurred 30 minutes after each dose of atorvastatin in the past. Advised to discuss this with Dr. Anderson as a different statin for which my choice would be rosuvastatin moderate to high-dose considering the circumstances. 3. 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 Primary Care Levon Aguayo Discharge Summary Discharge Physical Exam Allergies: Coded Allergies: ibuprofen (Verified Allergy, Mild, Nausea, 12/14/20) diphenhydramine (Verified Allergy, Unknown, 04/25/19) erythromycin base (Verified Allergy, Unknown, 04/25/19) loratadine (Verified Allergy, Unknown, 04/25/19) prednisone (Verified Allergy, Unknown, 04/25/19) rofecoxib (Verified Allergy, Unknown, 04/25/19) codeine (Verified Adverse Reaction, Mild, Nausea, 04/25/19) Vitals & I&Os Vital Signs Date Time Temp Pulse Resp B/P (MAP) Pulse Ox O2 Delivery O2 Flow Rate FiO2 12/16/20 07:25 36.6 65 14 114/70 (85) 95 Room Air General Appearance: No Apparent Distress, WD/WN Respiratory: Chest Non Tender, Lungs Clear, Normal Breath Sounds, No Accessory Muscle Use, No Respiratory Distress Cardiovascular: Regular Rate, Rhythm, No Edema, No Gallop, No JVD, No Murmur, Normal Peripheral Pulses Gastrointestinal: Normal Bowel Sounds, No Organomegaly, No Pulsatile Mass, Non Tender, Soft Extremity: Other (Bruising along right thigh with no evidence for hematoma formation no evidence for aneurysm dorsalis pedis pulse 2+) Hospital Course Was the Problem List Reviewed?: Yes Patient presented to emergency room with the onset of chest discomfort a ssociated with mild nausea. Her ECG was unremarkable but initial troponin was 0.5. She was admitted to monitor for non-ST segment elevation OK. Her second troponin level was a little over 4 with repeat ECG again revealing no evidence for ischemia. Echocardiography revealed normal LV systolic function according to Dr. Anderson with an estimated ejection fraction 55 to 65% pulmonary pressures were mildly elevated estimated at 40 to 45 mmHg with normal RV function. There is evidence for mild diastolic dysfunction with no evidence for any significant cardiac chamber dilatation. Cardiac catheterization was performed which revealed what appeared to be an old total right coronary artery occlusion with collateralized circulation and a high-grade blockage in the circumflex OM1 the likely culprit lesion. It was successfully stented with a drug-eluting stent with no further chest discomfort being reported by the patient. While she was started on Brilinta and aspirin upon arrival there is a good chance that this me dication will not be available to her through her [facility] pharmacy for this reason I have change it to clopidogrel 75 mg daily. If this is indeed not the case Dr. Anderson will change it back to Brilinta at his discretion. Patient reports she had been on atorvastatin in the past but every time she take the medication she would itch without rash for at least 30 minutes. Rosuvastatin 40 mg daily has been initiated. The importance of aspirin and either clopidogrel or Brilinta compliance discussed especially over the next 6 months was discussed with the patient. Advised follow-up lipid panel in several months cardiology and [facility] as per . Labs (last 24 hrs) Laboratory Tests 12/16/20 02:30: White Blood Count 7.7, Red Blood Count 4.10, Hemoglobin 12.4, Hematocrit 38, Mean Corpuscular Volume 93, Mean Corpuscular Hemoglobin 30, Mean Corpuscular Hemoglobin Concent 32, Red Cell Distribution Width 13.3, Platelet Count 213, Mean Platelet Volume 10.6, Sodium Level 140, Potassium Level 3.6, Chloride Level 106, Carbon Dioxide Level 22, Anion Gap 12, Blood Urea Nitrogen 7, Creatinine 0.92, Estimat Glomerular Filtration Rate > 60, BUN/Creatinine Ratio 8, Glucose Level 111H, Calcium Level 9.0, Troponin I 4.878*H Patient resulted labs reviewed. Pending Labs Laboratory Tests 12/16/20 02:30: White Blood Count 7.7, Red Blood Count 4.10, Hemoglobin 12.4, Hematocrit 38, Mean Corpuscular Volume 93, Mean Corpuscular Hemoglobin 30, Mean Corpuscular Hemoglobin Concent 32, Red Cell Distribution Width 13.3, Platelet Count 213, M irvin Platelet Volume 10.6, Sodium Level 140, Potassium Level 3.6, Chloride Level 106, Carbon Dioxide Level 22, Anion Gap 12, Blood Urea Nitrogen 7, Creatinine 0.92, Estimat Glomerular Filtration Rate > 60, BUN/Creatinine Ratio 8, Glucose Level 111, Calcium Level 9.0, Troponin I 4.878 Discussion & Recommendations Discharge Planning: >30 minutes discharge planning Discharge Home Medications: Active Scripts Active Plavix (Clopidogrel Bisulfate) 75 Mg Tablet 75 Mg PO DAILY 30 Days Aspirin EC (Aspirin) 81 Mg Tablet.dr 81 Mg PO DAILY 30 Days Metoprolol Succinate 25 Mg Tab.er.24h 25 Mg PO DAILY 30 Days Rosuvastatin Calcium 20 Mg Tablet 40 Mg PO HS 30 Days Reported Levothyroxine Sodium 75 Mcg Tablet 75 Mcg PO DAILY Instructions to patient/family Please see electronic discharge instructions given to patient. Clinical Quality Measures AMI/AHF: ASA po Prior to arrival: No Copy Copies To 2: [facility]LUIZ GONZALEZ MD Dec 16, 2020 10:09
[2020-12-16] MEDS: TICAGRELOR 90 MG TABLET (BRILINTA) PO SCH (10:19)
[2020-12-16] MEDS: PANTOPRAZOLE 40 MG (PROTONIX) VIAL IV SCH (10:26)
[2020-12-16 11:37] VITALS: BP 133/83
[2020-12-16] MEDS ORDERED: LISI-729 PO (13:28)
[2020-12-16] MEDS ORDERED: CLOPIDOGREL 300 MG (PLAVIX) TABLET PO NR (13:30)
--- NOTE | 2020-12-16 14:05 | Cardiology Progress Note ---
Cardiology SOAP Progress Note Subjective: No further chest pain. Objective: I&O/Vital Signs 12/16/20 12/16/20 12/16/20 12/16/20 04:00 07:00 07:25 09:30 Temp 36.4 36.6 Pulse 63 68 65 Resp 12 14 B/P (MAP) 113/70 (84) 114/70 (85) Pulse Ox 96 95 O2 Delivery Room Air Room Air Room Air 12/16/20 11:37 Temp 36.4 Pulse 68 Resp 15 B/P (MAP) 133/83 (100) Pulse Ox 96 O2 Delivery Room Air 12/16/20 00:00 Intake Total 250 ml Balance 250 ml Weight (Pounds): 160 Weight (Ounces): 0.0 Weight (Calculated Kilograms): [id number] Constitutional: appears stated age, AAO x 3; No apparent distress; well- developed, well-nourished Respiratory: chest is bilaterally symmetric, lungs clear to auscultation Cardiovascular: regular rate-rhythm, S1 and S2 Gastrointestional: soft, audible bowel sounds; No spleenomegaly Extremities: No clubbing, No cyanosis; no lower extremity edema bilateral; No significant edema Neurologic/Psychiatric: no motor/sensory deficits, alert, normal mood/affect, oriented x 3, power is 5/5 both on sides Skin: normal color; No rash, No ulcerations Results/Procedures: Labs Laboratory Tests 12/16/20 02:30: White Blood Count 7.7, Red Blood Count 4.10, Hemoglobin 12.4, Hematocrit 38, Mean Corpuscular Volume 93, Mean Corpuscular Hemoglobin 30, Mean Corpuscular Hemoglobin Concent 32, Red Cell Distribution Width 13.3, Platelet Count 213, Mean Platelet Volume 10.6, Sodium Level 140, Potassium Level 3.6, Chloride Level 106, Carbon Dioxide Level 22, Anion Gap 12, Blood Urea Nitrogen 7, Creatinine 0.92, Estimat Glomerular Filtration Rate > 60, BUN/Creatinine Ratio 8, Glucose Level 111H, Calcium Level 9.0, Troponin I 4.878*H A/P: Assessment/Dx: Non-STEMI, Hypertension, Hyperlipidemia, Marijuana use Plan: Non-STEMI, subtotal occlusion of distal left circumflex artery/OM 2, treated successfully with a drug-eluting stent Xience Fatemeh 2.25 x 18 mm. 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 We will treat medically for now. Dual antiplatelet therapy for at least a year. Hypertension: Started on beta-yaneth and low-dose ALICIA inhibitor. Hyperlipidemia: Patient had previously sensitivity reaction to atorvastatin. Started on Crestor. Marijuana abuse: I recommended quitting marijuana. Follow-up with Dr. Mendenhall or Dr. Aly. Thank you for your consultation. Please call me if you have any questions. Stella Anderson MD, FACP, FACC, FSCAI, FHRS, CCDS Interventional Cardiology Cardiac Electrophysiology Vascular Medicine and Endovascular Interventions Clinical Quality Measures AMI/AHF: ASA po Prior to arrival: Juan Jose Weiss MD Dec 16, 2020 14:05
[2020-12-17] MEDS ORDERED: lisINopril 5 MG (PRINIVIL) TABLET PO SCH (09:00)
== END 2020-12-16 14:26 | disposition home or self-care (01) | DRG 247 ==
LOC: EDUNIT# 14:38 → ER 14:40 → CSD 16:31
PROVIDERS: ADMIT Internal Medicine; ATTEND Internal Medicine
PROC: 027034Z Dilation of Coronary Artery, One Artery with Drug-eluting Intraluminal Device, Percutaneous Approach (ICD-10-PCS; principal; 2020-12-15)
PROC: 4A023N7 Measurement of Cardiac Sampling and Pressure, Left Heart, Percutaneous Approach (ICD-10-PCS; 2020-12-15)
PROC: B2111ZZ Fluoroscopy of Multiple Coronary Arteries using Low Osmolar Contrast (ICD-10-PCS; 2020-12-15)
PROC: B2151ZZ Fluoroscopy of Left Heart using Low Osmolar Contrast (ICD-10-PCS; 2020-12-15)
DX: I21.4 Non-ST elevation (NSTEMI) myocardial infarction (principal); I25.82 Chronic total occlusion of coronary artery; I25.10 Atherosclerotic heart disease of native coronary artery without angina pectoris; F12.10 Cannabis abuse, uncomplicated; E78.5 Hyperlipidemia, unspecified; M19.91 Primary osteoarthritis, unspecified site; M54.9 Dorsalgia, unspecified; E03.9 Hypothyroidism, unspecified; F41.9 Anxiety disorder, unspecified; I95.2 Hypotension due to drugs; T46.3X5A Adverse effect of coronary vasodilators, initial encounter; E06.3 Autoimmune thyroiditis; Z88.6 Allergy status to analgesic agent; Z88.8 Allergy status to other drugs, medicaments and biological substances
CPT/HCPCS: 36415; 71045; 80048; 80053; 80061; 83690; 83735; 83874; 83880; 84484; 85025; 85027; 85347; 85379; 85610; 85730; 93005; 93041; 93306; 93458

== ENCOUNTER → 2021-03-20 | Outpatient (RCR) | payer SELFPAY ==
[~2021-03-20] MED LIST changes: +ASPI-1238 PO; +CLOP75TA69 PO; +LISI-729 PO; +MTP25TSR PO; +ROSU20TA32 PO
== END ==
LOC: CR3 02-18 12:48
PROVIDERS: ATTEND Nurse Practitioner Family
DX: I25.10 Atherosclerotic heart disease of native coronary artery without angina pectoris (principal)

== ENCOUNTER 2021-04-17 07:31 | Outpatient (RCR) | payer SELFPAY | END 2021-04-21 | LOC: CR3 07:31 | PROVIDERS: ATTEND Nurse Practitioner Family | DX: Z29.8 Encounter for other specified prophylactic measures (principal); I25.10 Atherosclerotic heart disease of native coronary artery without angina pectoris ==

== ENCOUNTER → 2021-05-22 | Outpatient (RCR) | payer SELFPAY | END | disposition home or self-care (01) | LOC: CR3 04-22 07:19 | PROVIDERS: ATTEND Nurse Practitioner Family | DX: Z29.8 Encounter for other specified prophylactic measures (principal) ==

== ENCOUNTER 2021-06-21 07:18 | Outpatient (RCR) | payer SELFPAY | END 2021-06-23 | disposition home or self-care (01) | LOC: CR3 07:18 | PROVIDERS: ATTEND Nurse Practitioner Family | DX: Z29.8 Encounter for other specified prophylactic measures (principal) ==

== ENCOUNTER → 2021-07-24 | Outpatient (RCR) | payer SELFPAY ==
[~2021-07-24] MED LIST changes: -LISI-729 PO; +LISI5TAB20 PO
== END | disposition home or self-care (01) ==
LOC: CR3 06-24 06:59
PROVIDERS: ATTEND Nurse Practitioner Family
DX: Z29.8 Encounter for other specified prophylactic measures (principal)

== ENCOUNTER 2021-08-21 07:12 | Outpatient (RCR) | payer SELFPAY | END 2021-09-29 | disposition home or self-care (01) | LOC: CR3 07:12 | PROVIDERS: ATTEND Nurse Practitioner Family | DX: Z29.8 Encounter for other specified prophylactic measures (principal) ==

== ENCOUNTER → 2021-11-27 | Outpatient (RCR) | payer SELFPAY | END | disposition home or self-care (01) | LOC: CR3 10-16 06:56 | PROVIDERS: ATTEND Nurse Practitioner Family | DX: Z29.8 Encounter for other specified prophylactic measures (principal) ==

== ENCOUNTER → 2021-12-06 | Outpatient (CLI) | payer MEDICARE | LOC: CARD 09:30 | PROVIDERS: ATTEND Internal Medicine Cardiovascular Disease | DX: I51.7 Cardiomegaly (principal); I27.21 Secondary pulmonary arterial hypertension | CPT/HCPCS: 93306 ==

== ENCOUNTER 2022-01-22 06:50 | Outpatient (RCR) | payer SELFPAY | END 2022-01-27 | disposition home or self-care (01) | LOC: CR3 06:50 | PROVIDERS: ATTEND Nurse Practitioner Family | DX: Z29.8 Encounter for other specified prophylactic measures (principal) ==